=== PATIENT | male | born 1985 | race Caucasian/White ===

== ENCOUNTER 2020-03-13 15:51 | Outpatient (CLI) | payer SELFPAY ==
--- NOTE | 2020-03-13 16:00 | MR_ITS ---
WS: [id number] MRI CERVICAL SPINE NONCONTRAST TECHNIQUE: Sagittal T1, T2 and STIR imaging. Axial T2, gradient, and fiesta imaging. CLINICAL INFORMATION: M50.90 Cervical disc disorder, unspecified, unspecified c... COMPARISON: None. FINDINGS: Normal cervical alignment. Cord signal is normal. No high-grade central canal stenosis. C2-C3: Normal. C3-C4: Normal. C4-C5: No significant disc bulging. Mild facet arthropathy. Spinal canal and foramen are patent. C5-C6: Mild disc bulging with osteophytic ridging. Mild bilateral foraminal narrowing right greater t lloyd left. C6-C7: Mild disc osteophyte ridging. Mild left and no significant right foraminal narrowing. Mild fac et arthropathy. Spinal canal is patent. C7-T1: No significant disc bulging. Spinal canal and foramen are patent. Visualized brain stem structures: Normal. Prevertebral soft tissues: Normal. MR/MR cervical spin wo con* [id number] IMPRESSION: 1. Straightening of the normal cervical lordosis. Spinal canal and foramen are patent. Cord signal is normal. 2. Mild disc osteophyte complex C5-C6 with mild right foraminal narrowing. 3. Mild left C6-C7 foraminal narrowing. 4. Mild facet arthropathy C5-C6 and C6-C7.
== END 2020-03-13 15:52 | disposition home or self-care (01) ==
LOC: RADSHAW 15:55
PROVIDERS: Visit Provider Nurse Practitioner Family
DX: M50.90 Cervical disc disorder, unspecified, unspecified cervical region (principal); M25.78 Osteophyte, vertebrae; M47.812 Spondylosis without myelopathy or radiculopathy, cervical region
CPT/HCPCS: 72141

== ENCOUNTER → 2020-07-17 15:49 | Outpatient (BNVA) | payer OTHER, SELFPAY | PROVIDERS: Referring Provider Nurse Practitioner Family; Visit Provider Nurse Practitioner Family | DX: Z20.828 Contact with and (suspected) exposure to other viral communicable diseases (principal); J06.9 Acute upper respiratory infection, unspecified | CPT/HCPCS: 87635 ==

== ENCOUNTER → 2020-09-07 15:22 | Outpatient (BNVA) | payer OTHER, SELFPAY | PROVIDERS: Visit Provider Nurse Practitioner Family | DX: Z20.828 Contact with and (suspected) exposure to other viral communicable diseases (principal) | CPT/HCPCS: 87635 ==

== ENCOUNTER → 2020-10-09 09:03 | Outpatient (BNVA) | payer OTHER, SELFPAY | PROVIDERS: Visit Provider Counselor Professional | DX: F31.0 Bipolar disorder, current episode hypomanic (principal) | CPT/HCPCS: 90791 ==

== ENCOUNTER 2020-11-03 20:31 | Emergency (ER) | payer OTHER, SELFPAY ==
[2020-11-03 20:33] VITALS: BP 137/80; PULSE 61; RESP 18; TEMP 36.5; O2SAT 95; BMI 25.0
--- NOTE | 2020-11-03 21:04 | ED_ITS ---
HPI - Dental/Oral General: Chief complaint: Dental/Oral Stated complaint: dental/oral Time Seen by Provider: 11/03/20 21:03 Source: patient Mode of arrival: ambulatory Limitations: no limitations History of Present Illness: HPI Narrative: Patient presents with left side jaw pain. Patient also reports some swelling and tenderness to the buccal area of that side of the jaw. Patient reports severe pain. Difficulty eating. No relief with [id number] analgesics and amoxicillin antibiotic. Duration: intermittent Severity: severe Relieving factors: NSAIDs Exacerbating factors: chewing Context: history of dental caries Associated symptoms: Reports gum swelling Treatment prior to arrival: oral analgesic Review of Systems General: Reports: 10 or more systems reviewed and unremarkable except in HPI and below ENMT: Reports: dental pain PFSH ED PFSH: Social History Smoking and tobacco status: current every day smoker cigarettes Packs smoked per day: 2 Quit status (tobacco): not considering quitting Alcohol intake: current Alcohol intake frequency: holidays/special occasions only Desire information about substance/drug rehabilitation?: No Current occupational status: employed Previous occupational history: WDT History of recent travel: No Current gender identity: Male Physical Exam Const: COMMON NORMALS: no acute distress and patient oriented x3 GENERAL APPEARANCE: cooperative HENMT: COMMON NORMALS: normocephalic, TM's normal bilaterally and Normal external nose present HEAD & SCALP: normal to inspection and normocephalic NOSE: Normal external nose present TYMPANIC MEMBRANE: TM's normal bilaterally MOUTH: Normal oral and palatal mucosa present and other (Dental pain to the premolar of the left lower jaw. Some swelling is noted ) THROAT: posterior oropharynx normal Eye: GENERAL EYE: appearance normal, both eyes and all related structures Neck/C-Spine: COMMON NORMALS: full ROM Lymph: LYMPHATIC: no lymphadenopathy noted Chest: COMMONS NORMALS: normal inspection of the chest Resp: COMMON NORMALS: normal respiratory effort EFFORT & INSPECTION: Yes ab le to speak in complete sentences Cardio: COMMON NORMALS: regular rate and regular rhythm RATE: regular rate RHYTHM: regular rhythm GI: COMMON NORMALS: non-tender Extremity: COMMON NORMALS: normal to inspection Neuro: COMMON NORMALS: patient oriented x3 and moves all extremities Psych: COMMON NORMALS: mental status grossly normal and cooperative Skin: COMMON NORMALS: no rashes or lesions noted GENERAL SKIN EXAM: no rashes or lesions noted Course Vital Signs: Vital signs: Vital Signs Temperature 97.7 F 11/03/20 20:33 Pulse Rate 61 11/03/20 20:33 Respiratory Rate 18 11/03/20 20:33 Blood Pressure 137/80 11/03/20 20:33 Pulse Oximetry 56 L 11/03/20 20:33 MDM - Dental/Oral MDM Narrative: Medical decision making narrative: Patient presents with oral dental pain. On exam we note poor dentition, some swelling of the gumline over the premolar of the left lower jaw. Posterior pharynx is open without any obstruction of her symmetry. Sublingual area is open without any significant swelling. Respirations are even lungs are clear to auscultation. Vital signs are normal. Differential diagnosis includes but not limited to dental abscess, dental caries, odontalgia. Patient appears to have a dental abscess. No obvious sign of significant swelling or abscess to drain at this time. Patient has been on amoxicillin we will switch the amoxicillin to clindamycin for better coverage. Patient was also written some hydrocodone and ibuprofen for pain. Dental block was considered but patient reports that the last time they tried to numb him at the dentist they were unable to have him number for the procedure. Patient understands to follow-up with dentist for definitive care. Discharge Plan Discharge Patient Disposition: Home Clinical Impression: Dental abscess Condition: Stable Prescriptions: New clindamycin HCl 150 mg capsule 450 mg PO TID 7 Days Qty: 63 RF: 0 hydrocodone-acetaminophen 7.5-325 mg tablet 1 tab PO Q6H PRN (Reason: pain) Qty: 12 RF: 0 ibuprofen 800 mg tablet 800 mg PO Q8H PRN (Reason: pain) Qty: 30 RF: 0 No Action tramadol 50 mg tablet 50 mg PO Q8H PRN (Reason: pain) Qty: 30 RF: 0 gabapentin 800 mg tablet 800 mg PO TID Qty: 90 RF: 2 Discharge Orders: Discharge ED (Routine); Ordered 11/03/20 Ordered By: Vish Baer Discharge Diet: Advance as tolerated Discharge Activity: Increase activity as tolerated Patient Instructions: Dental Abscess (ED), Opioid Safety Activity Restrictions/Additional Instructions: Drink plenty of water with medication. Use ice or heat to the area for further comfort. Follow-up with dentist for definitive care. Return to the emergency department for new concerns. Coding Level of Care Code ED Senior Accounts Payable Specialist for Chg Fwd Exam Comprehensive
[2020-11-03] MEDS: clindamycin 150 mg Capsule 300 MG PO (21:16)
[2020-11-03] MEDS: HYDROcodone-acetaminophen 7.5-325 mg Tablet 1 TAB PO (21:16)
[2020-11-03] MEDS: cefTRIAXone 1,000 MG in lidocaine 1% 2.1 ML 2.1 MG IM (21:20)
[2020-11-03 21:26] VITALS: PULSE 49; RESP 16; O2SAT 97
== END 2020-11-03 21:32 | disposition home or self-care (01) ==
PROVIDERS: Emergency Provider Nurse Practitioner Family
DX: K04.7 Periapical abscess without sinus (principal); F17.210 Nicotine dependence, cigarettes, uncomplicated
CPT/HCPCS: 96372; 99283; J0696

== ENCOUNTER → 2020-11-23 08:33 | Outpatient (BNVA) | payer OTHER, SELFPAY | PROVIDERS: Visit Provider Psychiatry & Neurology Psychiatry | DX: M25.511 Pain in right shoulder (principal); M47.812 Spondylosis without myelopathy or radiculopathy, cervical region; F17.210 Nicotine dependence, cigarettes, uncomplicated; Z79.891 Long term (current) use of opiate analgesic | CPT/HCPCS: 99205 ==

== ENCOUNTER 2021-01-06 15:42 | Emergency (ER) | payer SELFPAY ==
[2021-01-06 15:59] VITALS: BP 151/80; PULSE 63; RESP 20; TEMP 36.8; O2SAT 98; BMI 27.0
--- NOTE | 2021-01-06 16:08 | W.ED.DENTAL ---
HPI - Dental/Oral General: Chief complaint: Dental/Oral Stated complaint: dental pain Time Seen by Provider: 01/06/21 15:59 History of Present Illness: HPI Narrative: Patient is a 35-year-old male comes to the ED with dental pain. Pain is located at upper right molar. He rates the pain a 10 out of 10 and describes it as a throbbing pain. Denies any fever, chills, Nausea/vomiting, facial swelling or any trouble breathing. patient has an appointment set up with a dentist in approximately 1 month. Associated symptoms: Denies fever(s) or odynophagia Review of Systems Const: Denies: fever(s), chills or fatigue Eyes: Denies: change in vision or eye discomfort ENMT: Reports: dental pain; Denies: throat pain, odynophagia, nasal discharge or nasal congestion Card: Denies: chest pain, palpitations, edema, swelling of feet/ankles, dyspnea on exertion or orthopnea Resp: Denies: dyspnea, productive cough or non-productive cough GI: Denies: abdominal pain, nausea, vomiting, diarrhea, constipation or hematochezia : Denies: flank pain, difficulty urinating, dysuria or hematuria Musc: Denies: neck pain, back pain or extremity swelling Skin/Breast: Denies: rash or new lesions Neuro: Denies: headache(s), numbness in extremities or weakness in extremities PFSH ED PFSH: Medical History Anxiety Chronic pain Family conflict Substance abuse Social History Smoking and tobacco status: current every day smoker cigarettes Packs smoked per day: 2 Quit status (tobacco): not considering quitting Alcohol intake: current Alcohol intake frequency: holidays/special occasions only Desire information about substance/drug rehabilitation?: No Current occupational status: employed Previous occupational history: WDT History of recent travel: No Current gender identity: Male Physical Exam Const: COMMON NORMALS: no acute distress, patient oriented x3 and alert GENERAL APPEARANCE: cooperative and comfortable HENMT: COMMON NORMALS: normocephalic HEAD & SCALP: normocephalic MOUTH: Normal oral and palatal mucosa present TEETH & GINGIVA: Yes abnormal tooth and associated gingiva upper right second molar tender and with associated gingival edema, Yes caries and Yes poor dentition THROAT: posterior oropharynx normal and uvula midline Neck/C-Spine: COMMON NORMALS: supple GENERAL: Yes normal visual inspection Resp: COMMON NORMALS: normal respiratory effort, No retractions, No use of accessory muscles and clear to auscultation bilaterally AUSCULTATION: clear to auscultation bilaterally Cardio: COMMON NORMALS: regular rate, regular rhythm, S1 normal heart sound present, S2 normal heart sound present, No gallops present (Cardio), No clicks present (Cardio), No murmurs present (Cardio) and Peripheral pulses 2+ throughout RATE: regular rate RHYTHM: regular rhythm HEART SOUNDS: S1 normal heart sound present and S2 normal heart sound present PERIPHERAL PULSES: Peripheral pulses 2+ throughout GI: COMMON NORMALS: Normal to inspection, nondistended, normoactive bowel sounds present, Soft to palpation, non-tender and no masses PALPATION: Yes Soft to palpation : COMMON NORMALS: Yes no CVA tenderness BLADDER/KIDNEY EXAM: Yes no CVA tenderness Back/Pelvis: COMMON NORMALS: no CVA tenderness Extremity: COMMON NORMALS: normal to inspection Neuro: COMMON NORMALS: patient oriented x3 and moves all extremities SENSORIUM/ORIENTATION: Yes alert Skin: GENERAL SKIN EXAM: dry skin Course Vital Signs: Vital signs: Vital Signs Temperature 98.2 F 01/06/21 15:59 Pulse Rate 63 01/06/21 15:59 Respiratory Rate 20 H 01/06/21 15:59 Blood Pressure 151/80 01/06/21 15:59 Pulse Oximetry 98 01/06/21 15:59 MDM - Dental/Oral MDM Narrative: Medical decision making narrative: Patient is a 35-year-old male comes to the ED with dental pain. Patient has a dentist appointment set up in about a month. Patient was given a dose of hydrocodone and clindamycin while here in the ED. Patient was discharged home with a prescription for clindamycin and tramadol. Return ED precautions given. Patient understood agree with plan. Discharge Plan Discharge Patient Disposition: Home Clinical Impression: Pain, dental Condition: Stable Prescriptions: New clindamycin HCl 150 mg capsule 300 mg PO QID 7 Days Qty: 56 RF: 0 No Action paroxetine HCl 10 mg tablet 10 mg PO DAILY 30 Days Qty: 30 RF: 1 ibuprofen 800 mg tablet 800 mg PO Q8H PRN (Reason: pain) Qty: 90 RF: 1 acetaminophen-codeine 300-30 mg tablet 1 tab PO BID PRN (Reason: pain) Qty: 10 RF: 0 gabapentin 400 mg capsule 800 mg PO TID Qty: 60 RF: 2 gabapentin 800 mg tablet 800 mg PO TID Qty: 180 RF: 3 Discharge Orders: Discharge ED (Routine); Ordered 01/06/21 Ordered By: Cornelius Yu Referrals: Abhay Sidhu FNP [Primary Care Provider] - Discharge Diet: Regular Discharge Activity: Resume usual activity Patient Instructions: Tramadol (By mouth), Dental Caries (ED), Toothache (ED) Activity Restrictions/Additional Instructions: Follow-up with dentist at your next scheduled appointment. Take medications as prescribed. Return to the ER or your medical provider if condition worsens. Please read and understand discharge instructions. Thank you for choosing [facility] for your healthcare needs today. Please realize this is an emergency room and that we are providing you with a medical screening exam and this may not be complete and all inclusive of all the testing and or work up that you may need to determine your ailment or severity of your illness. It is very important that you follow up as instructed or that you return to the Emergency Department should you have concerns or if your condition changes or worsens in any way. Coding Level of Care Code ED Button Pusher for Jovani Loyola Exam Comprehensive
[2021-01-06] MEDS: clindamycin 150 mg Capsule 300 MG PO (16:24)
[2021-01-06] MEDS: HYDROcodone-acetaminophen 7.5-325 mg Tablet 1 TAB PO (16:24)
== END 2021-01-06 16:28 | disposition home or self-care (01) ==
PROVIDERS: Emergency Provider Physician Assistant; PCP Nurse Practitioner Family
DX: K08.89 Other specified disorders of teeth and supporting structures (principal); F17.210 Nicotine dependence, cigarettes, uncomplicated
CPT/HCPCS: 99283

== ENCOUNTER → 2021-01-22 17:22 | Outpatient (BNVA) | payer SELFPAY | PROVIDERS: PCP Nurse Practitioner Family; Visit Provider Nurse Practitioner Family | DX: R19.7 Diarrhea, unspecified (principal); R19.8 Other specified symptoms and signs involving the digestive system and abdomen; R69 Illness, unspecified | CPT/HCPCS: 87400 ==

== ENCOUNTER → 2021-03-11 13:59 | Outpatient (BNVA) | payer OTHER, SELFPAY | PROVIDERS: PCP Nurse Practitioner Family; Visit Provider Emergency Medicine | DX: Z20.822 Contact with and (suspected) exposure to COVID-19 (principal) | CPT/HCPCS: 87635 ==

== ENCOUNTER 2021-03-28 10:15 | Outpatient (CLI) | payer OTHER, SELFPAY ==
--- NOTE | 2021-03-28 10:20 | XR_ITS ---
WS: [id number] THORACIC SPINE TECHNIQUE: AP and lateral views are performed. HISTORY: M54.5 - Low back pain COMPARISON: None available. Very minimal RIGHT curvature of the mid thoracic spine. No fractures. Posterior alignment is normal. Pedicles are all identified. No paravertebral mass. XR/XR thoracic spine 3V* [id number] IMPRESSION: Minimal curvature mid thoracic spine. Otherwise negative.
--- NOTE | 2021-03-28 10:20 | XR_ITS ---
WS: [id number] LUMBAR SPINE: 3 VIEWS TECHNIQUE: AP, lateral and L5-S1 spot. HISTORY: M54.5 - Low back pain COMPARISON: None available. Spina bifida occulta at S1. Lumbar vertebra are normally aligned. No loss of disc space or vertebral body height. SI joints are symmetric bilaterally. No soft tissue abnormalities. XR/XR lumbar spine 2-3V* [id number] IMPRESSION: Normal lumbar spine.
== END 2021-03-28 10:16 | disposition home or self-care (01) ==
PROVIDERS: PCP Nurse Practitioner Family; Visit Provider Family Medicine
DX: M54.5 Low back pain (principal)
CPT/HCPCS: 72072; 72100

== ENCOUNTER 2021-05-18 08:26 | Outpatient (CLI) | payer OTHER, SELFPAY ==
--- NOTE | 2021-05-18 08:45 | MR_ITS ---
WS: [id number] MRI LUMBAR SPINE NONCONTRAST HISTORY: M54.5 - Low back pain COMPARISON: None available. TECHNIQUE: Sagittal and axial multisequence imaging is submitted. Normal lumbar alignment with no compression fractures or marrow edema. Disc spaces and vertebral body heights are well-preserved. Conus terminates normally at L1-2 disc level. Well-circumscribed cystic mass at the S1-S2 level measuring 1.6 cm in length. 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 L1-L2: Normal. L2-L3: Normal. L3-L4: Small amount of fluid in the facet joints. No stenosis. L4-L5: Very mild ligamentum flavum hypertrophy. No stenosis. L5-S1: Very shallow central disc protrusion. No contact on the nerve roots. No stenosis. Paravertebral soft tissues are normal. MR/MR lumbar spine wo con* [id number] IMPRESSION: 1. Shallow central disc protrusion at L5-S1 without cord contact on the nerve roots. 2. No fractures or significant stenosis.
== END 2021-05-18 08:27 | disposition home or self-care (01) ==
LOC: RADSHAW 08:27
PROVIDERS: PCP Nurse Practitioner Family; Visit Provider Family Medicine
DX: Y99.0 Civilian activity done for income or pay; M51.27 Other intervertebral disc displacement, lumbosacral region
CPT/HCPCS: 72148

== ENCOUNTER → 2021-08-23 13:58 | Outpatient (BNVA) | payer OTHER, SELFPAY | PROVIDERS: PCP Nurse Practitioner Family; Visit Provider Registered Nurse | DX: Z79.899 Other long term (current) drug therapy (principal); Z79.891 Long term (current) use of opiate analgesic | CPT/HCPCS: 36415; 80053; 80061; 83036; 84443; 85025 ==

== ENCOUNTER → 2021-11-28 00:01 | Outpatient (BNVA) | payer OTHER, SELFPAY ==
[2021-09-19 16:40] VITALS: BP 130/74; BMI 24.8
== END ==
PROVIDERS: PCP Nurse Practitioner Family; Visit Provider Registered Nurse
DX: F31.9 Bipolar disorder, unspecified (principal); F90.2 Attention-deficit hyperactivity disorder, combined type
CPT/HCPCS: 80178; 84403; 84443

== ENCOUNTER → 2022-08-27 13:54 | Outpatient (BNVA) | payer OTHER, SELFPAY ==
[2021-09-19 16:40] VITALS: BP 130/74; BMI 24.8
== END ==
PROVIDERS: PCP Nurse Practitioner Family; Visit Provider Psychiatry & Neurology Neurology
DX: Z79.899 Other long term (current) drug therapy (principal)
CPT/HCPCS: 80061; 83036

== ENCOUNTER 2024-01-18 23:35 | Inpatient (IN) | payer SELFPAY ==
[2022-09-19 15:48] VITALS: BP 139/78; BMI 25.5
[2024-01-18 23:39] VITALS: BP 125/87; RESP 18; TEMP 36.6; BMI 25.0
[2024-01-19] MEDS: nicotine 21 mg Patch 1 PATCH TRANSDERMA (00:17)
[2024-01-19] MEDS: water for injection-sterile 10 ML (00:21)
[2024-01-19] MEDS: ziprasidone 20 mg/mL SDV IM (00:21)
[2024-01-19] MEDS: LORazepam 2 mg/mL INJ 10 mL MDV IM (00:40)
[2024-01-19 00:43] LABS: Basophils % 0.3 %; Eosinophils # 0.1 10^3/uL (0.0-0.8); Eosinophils % 1.4 %; Hematocrit 41.5 % (37-53); Lymphocytes # 1.8 10^3/uL (0.8-4.8); Lymphocytes % 28.3 %; Mean Corpuscular HGB Conc 33.5 g/dL (30-55); Mean Corpuscular Hemoglobin 30.9 pg (27-33); Mean Corpuscular Volume 92.2 fl (82-101); Mean Platelet Volume 8.8 fL (7.4-10.4); Monocytes # 0.5 10^3/uL (0.2-0.9); Monocytes % 7.5 %; Neutrophils # 4.05 10^3/uL (1.8-7.7); Neutrophils % 62.3 %; Nucleated Red Blood Cells % 0 %; Platelet Count 299 10^3/cmm (157-399); Red Cell Distribution Width 12.6 % (12.1-15.1)
--- NOTE | 2024-01-19 00:56 | PC.NURSE ---
pt clothing pt dressed out by this nurse. clothes, shoes, phone, form grader, debit card, wallet, lottery ticket all placed in bags. and in cabinet 9.
--- NOTE | 2024-01-19 00:59 | ED.C_ITS ---
HPI - Psych 2 General: Chief Complaint: Psychiatric Symptoms Stated Complaint: SI Time Seen by Provider: 01/18/24 23:46 Source: patient History of Present Illness: 38-year-old male patient with a history of depression. He presents by EMS. Evidently, he made somewhat of a suicidal statement to law enforcement at his home. The patient says that he did not say he wanted to kill himself, that he simply did not want to be alive he denies jake homicidality or suicidality currently. He has no plan. He does note that he believes he should be on medication, and needs help. He is willing to be admitted voluntarily. He denies significant medical problems. MD complaint: feels depressed Review of Systems 2 Const: Denies: fever(s), chills or body aches Eyes: Denies: change in vision Card: Denies: chest pain or palpitations Resp: Denies: dyspnea, productive cough, non-productive cough or wheezing GI: Denies: abdominal pain, nausea, vomiting, diarrhea or hematochezia Skin/Breast: Denies: rash Neuro: Denies: headache(s), weakness in extremities, dizziness or confusion PFS ED 2 PFSH: Medical History ADHD (attention deficit hyperactivity disorder), combined type Amphetamine dependence, in remission Remission since 2011 Anxiety Benzodiazepine abuse, episodic Bipolar 1 disorder Chronic pain Family conflict Generalized anxiety disorder Insomnia Marijuana user Panic disorder Paranoia reports hx of schizoaffective disorder, psychosis symptoms of paranoia Psychiatric care Substance abuse Surgical History No pertinent past surgical history Social History Smoking and tobacco/nicotine status: current every day tobacco/nicotine user (1 PPD 25 year history ) cigarettes Packs smoked per day: 2 Quit status (tobacco/nicotine): not considering quitting Alcohol intake: current Alcohol intake frequency: holidays/special occasions only Substance/Drug Use: never Current occupational status: employed Current gender identity: Male Physical Exam 2 Const: COMMON NORMALS: no acute distress GENERAL APPEARANCE: cooperative and anxious; not ill appearing and not frail appearing HENMT: COMMON NORMALS: normocephalic, atraumatic and Normal external nose present HEAD & SCALP: normocephalic and atraumatic FACE & SINUS: normal facial exam and face symmetric NOSE: Normal external nose present Eye: COMMON NORMALS: Equal, round and reactive pupils present and EOMs intact bilaterally PUPIL: Yes Equal, round and reactive pupils present Neck/C-Spine: GENERAL: Yes trachea midline Chest: CHEST: Yes Symmetrical chest wall rise Resp: COMMON NORMALS: normal respiratory effort, No retractions, No use of accessory muscles and clear to auscultation bilaterally AUSCULTATION: clear to auscultation bilaterally Cardio: COMMON NORMALS: regular rate and regular rhythm RATE: regular rate RHYTHM: regular rhythm GI: COMMON NORMALS: Normal to inspection, nondistended, normoactive bowel sounds present Extremity: COMMON NORMALS: no pedal edema Neuro: BRIDGETTE COMA SCALE: document GCS findings Bridgette coma scale eye opening: Spontaneous Bridgette coma scale verbal response: Orientated [place] coma scale motor response: Obey commands [place] coma scale total score: 15 S ENSORY EXAM: Yes extremities (intact) Psych: COMMON NORMALS: speech normal SPEECH: Yes normal speech Skin: COMMON NORMALS: no rashes or lesions noted GENERAL SKIN EXAM: no rashes or lesions noted Course 2 Vital Signs: Vital signs: Vital Signs Temperature 97.8 F 01/19/24 02:06 Pulse Rate 86 01/19/24 02:06 Respiratory Rate 18 01/19/24 02:06 Blood Pressure 125/87 01/19/24 02:06 Pulse Oximetry 97 01/19/24 02:06 Oxygen Delivery Me thod Room Air 01/19/24 01:49 MDM - Psych Medical Decision Making Patient was asking for something for anxiolysis. He was given Geodon. This seemed to agitate him a bit. He is given Ativan with good relief. Medically appears stable. Spoke with psychiatry. Will admit. He is voluntary at this point. Lab Data 01/19/24 00:12 01/19/24 00:12 Laboratory Results WBC 6.50 10^3/uL (3.29-11.43) 01/19/24 00:12 RBC 4.50 10^6/uL (3.85-5.65) 01/19/24 00:12 Hgb 13.90 g/dL (11.27-16.99) 01/19/24 00:12 Hct 41.5 % (37-53) 01/19/24 00:12 MCV 92.2 fl (82-101) 01/19/24 00:12 MCH 30.9 pg (27-33) 01/19/24 00:12 MCHC 33.5 g/dL (30-55) 01/19/24 00:12 RDW 12.6 % (12.1-15.1) 01/19/24 00:12 Plt Count 299 10^3/cmm (157-399) 01/19/24 00:12 MPV 8.8 fL (7.4-10.4) 01/19/24 00:12 Neut % (Auto) 62.3 % 01/19/24 00:12 Lymph % (Auto) 28.3 % 01/19/24 00:12 Parmer % (Auto) 7.5 % 01/19/24 00:12 Eos % (Auto) 1.4 % 01/19/24 00:12 Baso % (Auto) 0.3 % 01/19/24 00:12 Neut # (Auto) 4.05 10^3/uL (1.8-7.7) 01/19/24 00:12 Lymph # (Auto) 1.8 10^3/uL (0.8-4.8) 01/19/24 00:12 Parmer # (Auto) 0.5 10^3/uL (0.2-0.9) 01/19/24 00:12 Eos # (Auto) 0.1 10^3/uL (0.0-0.8) 01/19/24 00:12 Baso # (Auto) 0.0 10^3/uL (0.0-0.1) 01/19/24 00:12 Nucleated RBC % (auto) 0 % 01/19/24 00:12 Nucleated RBCs # 0.0 /100WBC 01/19/24 00:12 Sodium 138 mmol/L (136-145) 01/19/24 00:12 Potassium 3.5 mmol/L (3.5-5.1) 01/19/24 00:12 Chloride 99 mmol/L (98-107) 01/19/24 00:12 Carbon Dioxide 28 mmol/L (22-29) 01/19/24 00:12 Anion Gap 14.5 (5-19) 01/19/24 00:12 BUN 11 mg/dL (6-20) 01/19/24 00:12 Creatinine 1.0 mg/dL (0.7-1.2) 01/19/24 00:12 GFR Calculation 84.5 mL/min (90-130) L 01/19/24 00:12 Glucose 78 mg/dL (65-115) 01/19/24 00:12 Calculated Osmolality 284 mOsm/kg (285-295) L 01/19/24 00:12 Calcium 9.1 mg/dL (8.5-10.5) 01/19/24 00:12 Total Bilirubin 0.3 mg/dL (0.15-1.2) 01/19/24 00:12 AST 21 U/L (0-40) 01/19/24 00:12 ALT 15 U/L (0-41) 01/19/24 00:12 Alkaline Phosphatase 82 U/L (40-130) 01/19/24 00:12 Total Protein 7.4 g/dL (6.6-8.7) 01/19/24 00:12 Albumin 4.3 g/dL (3.5-5.2) 01/19/24 00:12 Globulin 3.1 g/dL (1.3-4.6) 01/19/24 00:12 Salicylates < 0.3 mg/dL (3-10) L 01/19/24 00:12 Acetaminophen < 5.0 ug/mL (10-30) L 01/19/24 00:12 Ethyl Alcohol < 10 mg/dL (0-10) 01/19/24 00:12 No radiology studies performed this visit Discharge Plan Discharge Patient Disposition: Admitted As Inpatient Admit Provider: Jeyson Amaro Clinical Impression: Bipolar 1 disorder, Generalized anxiety disorder, Depression Condition: Stable Coding Level of Care Code ED Children'S Entertainer for Jovani Loyola
[2024-01-19 01:05] LABS: Alanine Aminotransferase 15 U/L (0-41); Albumin Level 4.3 g/dL (3.5-5.2); Alkaline Phosphatase 82 U/L (40-130); Anion Gap 14.5 (5-19); Aspartate Amino Transferase 21 U/L (0-40); Blood Urea Nitrogen 11 mg/dL (6-20); Calcium 9.1 mg/dL (8.5-10.5); Carbon Dioxide 28 mmol/L (22-29); Chloride 99 mmol/L (98-107); Creatinine Clr Calc Pharmacy 119.0413; Globulin 3.1 g/dL (1.3-4.6); Glomerular Filtration Rate 84.5 mL/min (90-130); Glucose 78 mg/dL (65-115); Osmolality Calculated 284 mOsm/kg (285-295); Potassium 3.5 mmol/L (3.5-5.1); Sodium 138 mmol/L (136-145); Total Bilirubin 0.3 mg/dL (0.15-1.2); Total Protein 7.4 g/dL (6.6-8.7)
[2024-01-19 01:09] LABS: Acetaminophen < 5.0 ug/mL (10-30); Alcohol Level < 10 mg/dL (0-10); Salicylate < 0.3 mg/dL (3-10)
[2024-01-19 01:47] VITALS: RESP 16
[2024-01-19 02:06] VITALS: BP 125/87; PULSE 86; RESP 18; TEMP 36.6; O2SAT 97
--- NOTE | 2024-01-19 02:36 | PC.NURSE ---
Patient arrived to unit by wheelchair. Patient was so sleepy that he could not answer the admission questions. Was able to change him out into unit scrubs.
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
[2024-01-19 06:00] VITALS: BP 127/74; PULSE 81; RESP 17; O2SAT 98
[2024-01-19 08:40] LABS: Add Urine Microscopic? NO; Charge for UA Resulting for Rev
[2024-01-19 08:55] LABS: Bilirubin Urine Neg (Negative); Blood Urine Neg (Negative); Glucose Urine UA Norm (Normal); Ketones Urine Negative (Negative); Leukocyte Esterase Urine Negative (Negative); Nitrate Urine Negative (Negative); Protein Urine Neg (Negative); Urine Appearance Clear (CLEAR); Urine Color Yellow (Yellow); Urobilinogen Urine Neg (Negative); pH Urine 5 (5-7)
[2024-01-19 09:08] LABS: Amphetamines Screen Urine Positive (Negative); Barbiturates Screen Urine Negative (Negative); Benzodiazepines Screen Urine Positive (Negative); Cocaine Screen Urine Negative (Negative); Opiate Screen Urine Negative (Negative); PCP Screen Urine Negative (Negative); THC Screen Urine Positive (Negative)
[2024-01-19] MEDS: OLANZapine 5 mg ODT PO (09:48)
[2024-01-19] MEDS: hydrocortisone 2.5% cream 28 gm 1 APPLIC TOPICAL (09:49)
[2024-01-19] MEDS: nicotine 4 mg lozenge MUCOUS MEM ×3 (09:59→19:55)
--- NOTE | 2024-01-19 10:24 | PC.NURSE ---
patient anxious, rating anxiety 10/10. This nurse administered zyprexa 5mg ODT to patient. All questions answered.
[2024-01-19] MEDS: calcium carbonate 500 mg Chew Tablet 1000 MG PO (12:07)
[2024-01-19 14:00] VITALS: BP 144/76; PULSE 68; RESP 16; TEMP 37; O2SAT 99
[2024-01-19] MEDS: ibuprofen 600 mg Tablet PO ×2 (14:32→20:47)
[2024-01-19] MEDS: hyDROXYzine 25 mg Capsule 50 MG PO (20:50)
[2024-01-19] MEDS: trazodone 50 mg Tablet PO (20:50)
[2024-01-19 21:14] VITALS: BP 116/72; PULSE 77; RESP 16; TEMP 36.6; O2SAT 100
[2024-01-19] MEDS: mirtazapine 15 mg Tablet PO (22:58)
[2024-01-19] MEDS: clindamycin 150 mg Capsule 600 MG PO (22:58)
[2024-01-19] MEDS: acetaminophen 325 mg Tablet 650 MG PO (23:12)
[2024-01-20 06:00] VITALS: BP 135/77; PULSE 48; RESP 13; TEMP 36.6; O2SAT 98
[2024-01-20] MEDS: clindamycin 150 mg Capsule 600 MG PO (06:24)
[2024-01-20] MEDS: paliperidone ER 6 mg Tablet PO (08:15)
[2024-01-20] MEDS: ibuprofen 600 mg Tablet PO (08:15)
[2024-01-20] MEDS: nicotine 4 mg lozenge MUCOUS MEM (08:18)
[2024-01-20] MEDS: acetaminophen 325 mg Tablet 650 MG PO (11:16)
--- NOTE | 2024-01-20 12:30 | P.NPUDS_ITS ---
Diagnoses at Discharge Discharge Diagnosis (1) Substance abuse: Status: Acute (2) ADHD (attention deficit hyperactivity disorder), combined type: Status: Acute (3) Amphetamine dependence, in remission: Status: Acute Permanent problem details: Remission since 2011 (4) Generalized anxiety disorder: Status: Acute (5) Panic disorder: Status: Acute (6) PTSD (post-traumatic stress disorder): Status: Acute (7) Major depressive disorder, recurrent: Status: Acute (8) Psychosis: Status: Acute Reason for Visit Reason for Visit: SI Involuntary Hold Information 96 Hour Hold: 96 Hour Involuntary Admission: No Mental Status Exam MSE Comments: This is a a well-nourished, well-developed white male in hospital scrubs on with limited grooming and adequate eye contact. No abnormal movements except for mild psychomotor agitation. Cooperative with exam in mild to moderate distress. Speech was normal rate and decreased volume. Mood described as depressed, affect congruent and slightly irritable. Thought process organized. Thought content: Patient endorsed suicidal but denied homicidal ideation, there were no delusions reported or noted, and he endorsed auditory and visual hallucinations. Patient reports suicidal thoughts and a passive wish. Denies any current thoughts of self-harm or harm to others. Reports visual hallucinations and hearing voices, which started about 11 months ago. Experiences nightmares and flashbacks about past traumatic events, which started about 10 years ago. Reports symptoms of anxiety including difficulty breathing, numbness in the face, and hands curling in. No thoughts of violence or aggression towards others. No signs of paranoia or hallucinations. Attention and concentration were mostly intact and memory appeared somewhat reliable but none were formally tested. He is alert and oriented x 3. Insight and judgment are limited, impulse control is limited versus impaired. Discharge Data Studies Completed and Pending: Laboratory Results WBC 6.50 10^3/uL (3.2 9-11.43) 01/19/24 00:12 RBC 4.50 10^6/uL (3.8 5-5.65) 01/19/24 00:12 Hgb 13.90 g/dL (11.27 -16.99) 01/19/24 00:12 Hct 41.5 % (37-53) 01/19/24 00:12 MCV 92.2 fl (82-101) 01/19/24 00:12 MCH 30.9 pg (27-33) 01/19/24 00:12 MCHC 33.5 g/dL (30-55) 01/19/24 00:12 RDW 12.6 % (12.1-15.1 ) 01/19/24 00:12 Plt Count 299 10^3/cmm (157 -399) 01/19/24 00:12 MPV 8.8 fL (7.4-10.4) 01/19/24 00:12 Neut % (Auto) 62.3 % 01/19/24 00:12 Lymph % (Auto) 28.3 % 01/19/24 00:12 [place] % (Auto) 7.5 % 01/19/24 00:12 Eos % (Auto) 1.4 % 01/19/24 00:12 Baso % (Auto) 0.3 % 01/19/24 00:12 Neut # (Auto) 4.05 10^3/uL (1.8 -7.7) 01/19/24 00:12 Lymph # (Auto) 1.8 10^3/uL (0.8- 4.8) 01/19/24 00:12 [place] # (Auto) 0.5 10^3/uL (0.2- 0.9) 01/19/24 00:12 Eos # (Auto) 0.1 10^3/uL (0.0- 0.8) 01/19/24 00:12 Baso # (Auto) 0.0 10^3/uL (0.0- 0.1) 01/19/24 00:12 Nucleated RBC % (a uto) 0 % 01/19/24 00:12 Nucleated RBCs # 0.0 /100WBC 01/19/24 00:12 Sodium 138 mmol/L (136-1 45) 01/19/24 00:12 Potassium 3.5 mmol/L (3.5-5 .1) 01/19/24 00:12 Chloride 99 mmol/L (98-107 ) 01/19/24 00:12 Carbon Dioxide 28 mmol/L (22-29) 01/19/24 00:12 Anion Gap 14.5 (5-19) 01/19/24 00:12 BUN 11 mg/dL (6-20) 01/19/24 00:12 Creatinine 1.0 mg/dL (0.7-1. 2) 01/19/24 00:12 GFR Calculation 84.5 mL/min (90-1 30) L 01/19/24 00:12 Glucose 78 mg/dL (65-115) 01/19/24 00:12 Calculated Osmolal ity 284 mOsm/kg (285- 295) L 01/19/24 00:12 Calcium 9.1 mg/dL (8.5-10 .5) 01/19/24 00:12 Total Bilirubin 0.3 mg/dL (0.15-1 .2) 01/19/24 00:12 AST 21 U/L (0-40) 01/19/24 00:12 ALT 15 U/L (0-41) 01/19/24 00:12 Alkaline Phosphata se 82 U/L (40-130) 01/19/24 00:12 Total Protein 7.4 g/dL (6.6-8.7 ) 01/19/24 00:12 Albumin 4.3 g/dL (3.5-5.2 ) 01/19/24 00:12 Globulin 3.1 g/dL (1.3-4.6 ) 01/19/24 00:12 Urine Color Yellow (Yellow) 01/19/24 08:30 Urine Appearance Clear (CLEAR) 01/19/24 08:30 Urine pH 5 (5-7) 01/19/24 08:30 Ur Specific Gravit y 1.020 (1.005-1.0 30) 01/19/24 08:30 Urine Protein Neg (Negative) 01/19/24 08:30 Urine Glucose (UA) Norm (Normal) 01/19/24 08:30 Urine Ketones Negative (Negati ve) 01/19/24 08:30 Urine Blood Neg (Negative) 01/19/24 08:30 Urine Nitrate Negative (Negati ve) 01/19/24 08:30 Urine Bilirubin Neg (Negative) 01/19/24 08:30 Urine Urobilinogen Neg mg/dL (Negati ve) 01/19/24 08:30 Ur Leukocyte Sakina ase Negative (Negati ve) 01/19/24 08:30 Salicylates < 0.3 mg/dL (3-10 ) L 01/19/24 00:12 Urine Opiates Scre en Negative ng/mL (N egative) 01/19/24 08:30 Acetaminophen < 5.0 ug/mL (10-3 0) L 01/19/24 00:12 Ur Barbiturates Sc reen Negative ng/mL (N egative) 01/19/24 08:30 Ur Phencyclidine S crn Negative ng/mL (N egative) 01/19/24 08:30 Ur Amphetamines Sc reen Positive ng/mL (N egative) H 01/19/24 08:30 U Benzodiazepines Scrn Positive ng/mL (N egative) H 01/19/24 08:30 Urine Cocaine Scre en Negative ng/mL (N egative) 01/19/24 08:30 U Marijuana (THC) Screen Positive ng/mL (N egative) H 01/19/24 08:30 Ethyl Alcohol < 10 mg/dL (0-10) 01/19/24 00:12 Vitals: Last Vital Signs Temp 97.9 F 01/20/24 06:00 Pulse 48 L 01/20/24 06:00 Resp 13 01/20/24 06:00 BP 135/77 01/20/24 06:00 Pulse Ox 98 01/20/24 06:00 O2 Del Method Room Air 01/19/24 21:14 Discharge Plan Discharge Patient Disposition: Home Condition: Stable Prescriptions: New clindamycin HCl 300 mg capsule 600 mg PO Q8H 7 Days Qty: 40 0RF trazodone 50 mg Tablet 50 mg PO BEDTIME PRN (Reason: Sleep) 30 Days Qty: 30 1RF mirtazapine 15 mg Tablet 15 mg PO BEDTIME 30 Days Qty: 30 1RF hydroxyzine pamoate 25 mg Capsule 50 mg PO Q6H PRN (Reason: Anxiety) 30 Days Qty: 120 1RF paliperidone 6 mg Tablet Extended Release 24hr 6 mg PO DAILY 30 Days Qty: 30 1RF Discharge Orders: Discharge Order (Routine); Ordered 01/20/24 Ordered By: Jeyson Amaro Referrals: [facility] [Other] - 01/21/24 12:30 pm [facility] [Outside] Janina Amaro MD [Primary Care Provider] - Discharge Diet: Regular Discharge Activity: Resume usual activity Patient Instructions: Opioid Safety Discharge Attestations NPU Time Spent in Discharge Care*: less than 30 min Specific Discharge Activities: Specific discharge activities: educating patient, discussing with family independence case manager/social workers/dc planners, documenting/other paperwork and evaluating patient/reviewing data Coding Level of Care Code Acute Code for [facility] Fwd Diagnoses Substance abuse F19.10 ADHD (attention deficit hyperactivity disorder), combined type F90.2 Amphetamine dependence, in remission F15.21 Generalized anxiety disorder F41.1 Panic disorder F41.0 PTSD (post-traumatic stress disorder) F43.10 Major depressive disorder, recurrent F33.9 Psychosis F29
== END 2024-01-20 13:01 | disposition home or self-care (01) | DRG 885 ==
LOC: ER 01-19 01:02 → NP 01-19 01:46
PROVIDERS: Admitting Provider Psychiatry & Neurology Psychiatry; Emergency Provider Emergency Medicine; PCP Family Medicine; Visit Provider Psychiatry & Neurology Psychiatry
DX: F33.9 Major depressive disorder, recurrent, unspecified (principal); R45.851 Suicidal ideations; F17.210 Nicotine dependence, cigarettes, uncomplicated; F90.2 Attention-deficit hyperactivity disorder, combined type; F15.21 Other stimulant dependence, in remission; F41.1 Generalized anxiety disorder; G47.00 Insomnia, unspecified; F41.0 Panic disorder [episodic paroxysmal anxiety]
CPT/HCPCS: 80053; 80306; 80307; 81003; 85025; 96372; 97165; 99285; J2060; J3486

== ENCOUNTER → 2025-01-05 15:24 | Outpatient (BNVA) | payer OTHER, SELFPAY ==
[2022-09-19 15:48] VITALS: BP 139/78; BMI 25.5
== END ==
PROVIDERS: PCP Family Medicine
DX: F33.9 Major depressive disorder, recurrent, unspecified (principal); F43.10 Post-traumatic stress disorder, unspecified; F90.2 Attention-deficit hyperactivity disorder, combined type
CPT/HCPCS: 80053; 80061; 83036; 84443; 85025